=== PATIENT | male | born 1945 | race American Indian/Alaskan Native ===

== ENCOUNTER 2017-12-04 07:16 | Inpatient (IN) | payer MEDICARE, OTHER ==
[2017-12-04 08:16] LABS: Basophils % (Auto) 0.6 % (0.0-1.8); Eosinophils % (Auto) 0.7 % (0.0-4.3); Hemoglobin 11.6 gm/dl (11.8-15.2); Lymphocytes # (Auto) 1.3 K/mm3 (1.2-5.4); Lymphocytes % (Auto) 29.3 % (13.4-35.0); Mean Corpuscular HGB Conc 34 % (32-34); Mean Corpuscular Hemoglobin 31 pg (28-32); Mean Corpuscular Volume 91 fl (84-94); Monocytes # (Auto) 0.7 K/mm3 (0.0-0.8); Monocytes % (Auto) 14.8 % (0.0-7.3); Platelet Count 166 K/mm3 (140-440); Red Blood Count 3.72 M/mm3 (3.65-5.03); Red Cell Distribution Width 14.4 % (13.2-15.2)
[2017-12-04 08:26] LABS: INR 0.99 (0.87-1.13)
[2017-12-04 08:30] LABS: BUN/Creatinine Ratio 21; Blood Urea Nitrogen 23 mg/dL (9-20); Calcium 9.2 mg/dL (8.4-10.2); Hemolysis Index 3
[2017-12-04] MEDS ORDERED: ECOTRIN PO NR (08:30)
[2017-12-04] MEDS ORDERED: HEPARIN 10,000 UNITS/10 ML ONE (08:51)
[2017-12-04] MEDS ORDERED: HEPARIN/NS 5000 UNIT/500ML(CATH LAB) 1,000 ML IR ONE (08:51)
[2017-12-04] MEDS ORDERED: XYLOCAINE 2% INFILTRATI ONE ×2 (08:52→09:09)
[2017-12-04] MEDS ORDERED: NITROGLYCERIN SYRINGE 3 ML ONE ×2 (08:52→09:10)
[2017-12-04] MEDS ORDERED: SUBLIMAZE ONE (08:52)
[2017-12-04] MEDS ORDERED: VERSED ONE (08:52)
[2017-12-04] MEDS ORDERED: CALAN ONE (08:52)
[2017-12-04] MEDS ORDERED: NACL 0.9% 500 ML 500 ML IV SCH (09:00)
[2017-12-04] MEDS ORDERED: VERSED IV ONE (09:08)
[2017-12-04] MEDS ORDERED: SUBLIMAZE IV ONE (09:08)
[2017-12-04] MEDS ORDERED: HEPARIN 10,000 UNITS/10 ML IV ONE (09:11)
--- NOTE | 2017-12-04 12:00 | Cardiac Catherization Report ---
REFERRING PHYSICIAN: Dr. Villarreal. PRIMARY CARE PHYSICIAN: Dr. Jose Carter. INDICATION FOR PROCEDURE: The patient is a very pleasant 72-year-old gentleman, who had a significantly abnormal stress test in the office, multiple risk factors, referred for left heart catheterization. Risks, benefits, and potential alternatives explained at length prior to obtaining informed consent. PROCEDURE: The patient brought to label folder in a postabsorptive state, prepped and draped in sterile fashion. Jef's test of the right hand was normal. A 2 mL of 2% lidocaine was used to anesthetize the right wrist. A standard 6-Greek hydrophilic sheath used to cannulate the right radial artery via modified Seldinger technique. All exchanges performed to exchange a J-tip guidewire. JL3.5 catheter used to engage the left main. No dampening or ventricularization. Cineangiography performed in all projections. JR4 catheter used to cross the valve under fluoroscopic guidance. Left ventriculography performed in 30 GUT[address]Z and 30 [place] projections via hand injections, catheter flushed. Manual pullback performed with continuous pressure monitoring. Catheter used to engage the right coronary. No dampening or ventricularization. Cineangiography performed in all projections. Next, catheter removed from the body. DATA: Aortic pressure, the patient remained in sinus bradycardia throughout the procedure from 50-60 beats per minute. Aortic pressure is 140/60, LV pressure is 140. LVEDP of 15 mmHg. Left ventriculography revealed normal systolic performance with estimated ejection fraction of 55-60%. No evidence of aortic stenosis. No significant mitral regurgitation either. CORONARY ANATOMY: This is a codominant system. Left main is short. No significant disease, bifurcates left anterior descending and left circumflex. Left circumflex is an intermediate sized vessel, 25% mid stenosis. Large OM trunk, left PDA small. No significant disease. LAD is a moderate sized vessel, courses anterior intergroove, wraps around the apex. The proximal and mid LAD are heavily calcified and complex, appears to be 70-80% ostial and proximal LAD stenosis, 95% mid LAD stenosis, a long complex lesion. Right coronary is a moderate sized vessel, courses AV groove, distally bifurcates in the posterior descending and posterolateral branches. There is a complex calcific 90% stenosis proximally, moderate diffuse disease, distal small vessel disease. At this point, I want to further interrogate the proximal LAD given its intermediate findings on angiography. The stress test does correlate with significant anterior and anterolateral and septal ischemia. EBU guide used to engage the left main. Heparin given. Abnormal ACT confirmed. I used a [place] wire to cross the lesion without difficulty. Intravascular ultrasound was used to interrogate the mid LAD, proximal LAD, and ostial LAD. The mid LAD lesion is greater than 95%, was unable to pass IVUS. The entire proximal LAD is heavily and diffusely calcified. The mean luminal area of the ostial LAD is 2.8 mm sq. At this point, wire and IVUS removed. Final angiogram reveals no complications. CONCLUSIONS: 1. Severe, diffuse, complex, calcific 2-vessel disease. A 90% calcific, ostial, and mid LAD stenosis with a mean luminal area of less than 3 mm sq. 2. 95% mid LAD stenosis. 3. 90% calcific proximal right coronary stenosis. 4. Preserved left ventricular systolic performance, estimated ejection fraction of 55% -60%. 5. No evidence of aortic stenosis. Given diffuse and calcific disease, recommend complete revascularization. Consider coronary bypass surgery. Discussed with Dr. Solis. The patient is clinically stable. The patient will be transferred to [facility] for possible coronary bypass surgery in stable condition. Results of the procedure were explained at length to the patient and family. All questions and concerns were addressed. JOB# [id number] HARMAN/MASSIMO
[2017-12-04] MEDS ORDERED: DULCOLAX PR PRN (14:03)
[2017-12-04] MEDS ORDERED: TYLENOL PO PRN (14:03)
[2017-12-04] MEDS ORDERED: MILK OF MAGNESIA PO PRN (14:03)
[2017-12-04] MEDS ORDERED: ZOFRAN IV PRN (14:03)
[2017-12-05] MEDS ORDERED: HALFPRIN EC PO SCH (10:00)
[2017-12-05] MEDS ORDERED: ZESTRIL PO SCH (10:00)
[2017-12-05] MEDS ORDERED: HCTZ PO SCH (10:00)
[2017-12-05 11:20] VITALS: BP 115/56
[2017-12-05] MEDS ORDERED: Fluarix Quad 2017-2018(36 MOS+ IM ONE (12:00)
[2017-12-05] MEDS ORDERED: PNEUMOVAX 23 IM ONE (12:00)
--- NOTE | 2017-12-05 14:18 | Short Stay Summary ---
Short Stay Documentation Date of service: 12/05/17 - History H&P: obtained from office - Allergies and Medications Current Medications: Allergies latex Allergy (Mild, Verified 12/04/17 08:57) Rash Home Medications Medication Instructions Recorded Confirmed Last Taken Type Aspirin [Lo-Dose Aspirin EC] 81 mg PO DAILY 12/04/17 12/04/17 12/03/17 History Atorvastatin Calcium [Atorvastatin 40 mg PO DAILY 12/04/17 12/04/17 12/03/17 History Calcium] Hydrochlorothiazide [HCTZ] 25 mg PO DAILY 12/04/17 12/04/17 12/03/17 History Lisinopril [Zestril TAB] 40 mg PO DAILY 12/04/17 12/04/17 12/03/17 History Omeprazole 40 mg PO DAILY 12/04/17 12/04/17 12/03/17 History - Brief post op/procedure progress note Date of procedure: 12/04/17 Pre-op diagnosis: abnormal stress test Post-op diagnosis: other (CAD) Procedure: [facility] - see cath report Anesthesia: local Estimated blood loss: none Condition: stable - Disposition Condition at discharge: Stable Disposition: [id number] - Discharge Diagnoses (1) CAD (coronary artery disease) Status: Chronic Short Stay Discharge Plan Diet: low fat, low cholesterol, low salt Wound: open to air, keep clean and dry, per your surgeon's advice Follow up with: ELIZA MONTENEGOR MD [Primary Care Provider] - 7 Days MADI LONG MD [Staff Physician] - 7 Days
== END 2017-12-05 08:45 | disposition other institution (70) | DRG 287 ==
LOC: CATHLABREC 07:16 → 4A 14:03
PROVIDERS: ADMIT Internal Medicine; ATTEND Internal Medicine
PROC: 4A023N7 Measurement of Cardiac Sampling and Pressure, Left Heart, Percutaneous Approach (ICD-10-PCS; principal; 2017-12-04)
PROC: B2111ZZ Fluoroscopy of Multiple Coronary Arteries using Low Osmolar Contrast (ICD-10-PCS; 2017-12-04)
PROC: B2151ZZ Fluoroscopy of Left Heart using Low Osmolar Contrast (ICD-10-PCS; 2017-12-04)
PROC: 3E0234Z Introduction of Serum, Toxoid and Vaccine into Muscle, Percutaneous Approach (ICD-10-PCS; 2017-12-04)
DX: I25.10 Atherosclerotic heart disease of native coronary artery without angina pectoris (principal); F17.200 Nicotine dependence, unspecified, uncomplicated; I45.10 Unspecified right bundle-branch block; E78.5 Hyperlipidemia, unspecified; Z79.82 Long term (current) use of aspirin; Z79.899 Other long term (current) drug therapy; Z91.040 Latex allergy status; Z23 Encounter for immunization
CPT/HCPCS: 36415; 80048; 85025; 85610; 85730; 90686; 90732; 92978; 93005; 93010; 93458; C1753; C1769; C1887; C1894; J1644; J2250; J3010; J7040; Q9967